=== PATIENT | male | born 1955 | race Caucasian/White ===

== ENCOUNTER → 2017-10-06 | Outpatient (CLI) | payer BC ==
[~2017-10-06] MED LIST: ACET500C41 PO; ALB18R INH; ALBUDR INH; ASCO250T86 PO; AZIT-1 PO; AZIT-17 PO; BIOT250012 PO; CHOL200074 PO; CYAN500T38 PO; DOCU-416 PO; FLU44R IH; FLUINH INH; FLUT16SP19 NS; FLUT1DIS28 IH; GLUC1TAB13 PO; HCTZ25 PO; IBUP600T22 PO; KRIL500C2 PO; LACT1CAP6 PO; LACT1CAP64 PO; LOS50 PO; LOSA-57 PO; LUTE20TA PO; LYCO10CA2 PO; MONT10TA PO; OMEP-218 PO; OXYC-854 PO; PNEI IJ; POTA-23 PO; POTASSIUM SUPPLEMENT; PRED20TA6 PO; TAMS0.4C70 PO; UBID200C21 PO; VITA-200 PO; [UNRECOGNIZED DRUG - REMARK]
--- NOTE | 2017-10-06 14:13 | RADIOLOGY IMAGING REPORT ---
[place] [facility] [place] Grady Guzman : 1955 MR: [id number] V: [id number] EXAM DATE: ORDERING PHYSICIAN: SUE HARRIS TECHNOLOGIST: Location: [facility] Patient: Grady Guzman : 1955 Visit/Account:[id number] Date of Sevice: 10/06/2017 CHEST W/O CONTRAST History: Thoracic aortic aneurysm without rupture, history of asthma TECHNIQUE: Contiguous axial images were performed through the chest to the level of the adrenal gla nds. No IV contrast was administered. Coronal and sagittal reformatting was also performed. Dose Lowe ring Technique One of the following dose optimization techniques was utilized in the performance of this exam: Autom ated exposure control; adjustment of the mA and/or kV according to the patient's size; or use of an i terative reconstruction technique. Specific details can be referenced in the facility's radiology C T exam operational policy. COMPARISON STUDIES: PA and lateral chest December 30, 2016. Lungs / Pleura: There is a 4 mm noncalcified nodule posterior aspect of the left lower lobe best se en on image 77 of series 3. There is a small amount linear stranding in the medial right middle lobe and left lower lobe which may represent scarring or a small amount of discoid atelectasis Mediastinum/nodes: Mediastinal structures are not ideally evaluated due to lack of intravenous contr ast. There are small pretracheal, precarinal AP window and right hilar lymph nodes. All measuring l ess than 1 cm. Heart and vessels: There are mild to moderate atherosclerotic calcifications involving the ascending thoracic aorta the aorta is not well evaluated due to lack of contrast. The distal ascending thorac ic aorta is dilated at 4.4 cm. The descending thoracic aorta does not appear dilated measures approx imately 2.5 cm in AP dimension. There are sternotomy sutures present and surgical clips are present anterior to the right ventricle and right atrium. There is a small calcification in the pericardium adjacent to the left ventricular apex Musculoskeletal / Body wall: There are sternotomy sutures present. Upper abdomen: Stomach is moderately distended with fluid and particulate material. IMPRESSION: Mild to moderate atherosclerotic calcifications are seen in the ascending thoracic aorta. The aorta is not well evaluated due to lack of contrast. The distal ascending thoracic aorta is dilated at 4.4 cm. The descending thoracic aorta does not appear dilated. Postsurgical changes from a sternotomy are noted. There is a 4 mm noncalcified nodule left lower lobe. For nodules less than 6 mm in a low risk patient (minimal or absent smoking history, no history of malignancy), no routine followup is recommended. I n a high risk patient (smoking or malignancy history), optional 12 month followup can be obtained. Small amount linear stranding in the right middle lobe left lower lobe which may represent scarring v ersus discoid atelectasis Multiple small mediastinal lymph nodes are present none of which appear pathologically enlarged. Report Dictated By: Francisca Winters MD at 10/06/2017 1:53 PM Report E-Signed By: Francisca Winters MD at 10/06/2017 2:08 PM WSN:[email or web address]
== END ==
LOC: CT 00:36
PROVIDERS: ATTEND Internal Medicine Cardiovascular Disease
DX: I70.0 Atherosclerosis of aorta (principal); R91.1 Solitary pulmonary nodule; R91.8 Other nonspecific abnormal finding of lung field
CPT/HCPCS: 71250

== ENCOUNTER → 2017-11-26 | Outpatient (REF) | payer BC ==
[2017-11-26 12:41] LABS: PLATELET COUNT, AUTOMATED 292 K/uL (150-450)
== END ==
PROVIDERS: ATTEND Nurse Practitioner Family
DX: M79.609 Pain in unspecified limb (principal)
CPT/HCPCS: 82040; 82247; 82310; 82374; 82435; 82565; 82947; 84075; 84132; 84155; 84295; 84450; 84460; 84520; 85025; 85651; 86140

== ENCOUNTER → 2017-12-05 | Outpatient (CLI) | payer BC ==
[~2017-12-05] MED LIST changes: +PRED-1 PO
[2017-12-05 11:25] LABS: INR 2.24
== END ==
LOC: LAB 10:47
PROVIDERS: ATTEND Orthopaedic Surgery Adult Reconstructive Orthopaedic Surgery
DX: Z51.81 Encounter for therapeutic drug level monitoring (principal); Z79.01 Long term (current) use of anticoagulants; M17.11 Unilateral primary osteoarthritis, right knee
CPT/HCPCS: 36415; 85610

== ENCOUNTER 2018-04-12 00:12 | Day surgery (SDC) | payer BC ==
[~2018-04-12] VITALS: Ht 177.8 cm; Wt 102.1 kg
[~2018-04-12 00:12] MED LIST changes: +ALBU2.5V36 INH; +FLUT250D IH; +VIT-9 PO
[2018-04-12] MEDS ORDERED: PROPOFOL EMUL(*) 10MG/ML 20 ML 40 ML ONE (06:58)
[2018-04-12 09:35] VITALS: BP 135/70
[2018-04-12] MEDS ORDERED: PROPOFOL EMUL(*) 10MG/ML 20 ML 20 ML ONE (10:59)
[2018-04-12] MEDS ORDERED: LIDOCAINE/SOD BICARB 8.4% SYR ID ONE (11:00)
[2018-04-12] MEDS ORDERED: NORMOSOL R SOLN(*) 1000 ML BAG 1,000 ML IV PRN (11:00)
[2018-04-12 11:14] VITALS: BP 92/51
--- NOTE | 2018-04-12 11:16 | Short(Outpt) Discharge Summary ---
Discharge Summary Reason for Hosp/Final Diag: (1) Colon cancer screening Status: Chronic Hospital Course & Plan: Colonoscopy with polypectomy x3 completed without problems. Departure Discharge to: Home, Self Care Discharge Instructions Home Meds Active Scripts Fluticasone Prop 50 Mcg Ns (FLONASE 50 MCG NS) 16 Gm Lucas.susp, 2 SPRAYS NS QDAY, #1 BOT 4 Refills Prov:KATRIN KRAUS MD 02/10/18 Ibuprofen (IBUPROFEN) 600 Mg Tablet, 1 TAB PO Q6H Y for PAIN, #60 TAB 0 Refills Prov:SUE SEARS MD 02/10/18 Tamsulosin Hcl (TAMSULOSIN HCL) 0.4 Mg Cap.er.24h, 1 CAP PO DAILY for to improve urine flow. , #90 CAP 1 Refill Prov:KATRIN KRAUS MD 01/20/18 Losartan/Hydrochlorothiazide (LOSARTAN-HCTZ 100-12.5 MG TAB) 1 Each Tablet, 1 EACH PO QDAY, #90 TAB 4 Refills Prov:KATRIN KRAUS MD 01/20/18 Albuterol Sulfate (VENTOLIN HFA) 18 Gm Inh, 1-2 PUFF INH TID, #3 INH 4 Refills Prov:KATRIN RKAUS MD 04/07/17 Reported Medications Vit A/Vit C/Vit E/Zinc/Copper (PRESERVISION AREDS TABLET) 1 Each Tablet, 1 EACH PO QDAY 04/03/18 Fluticasone Propionate (FLOVENT DISKUS) 250 Mcg Disk.w.dev, 250 MCG IH 04/03/18 Fluticasone/Salmeterol (ADVAIR 250-50 DISKUS) 1 Each Disk.w.dev, IH, DISK 01/10/18 Lactobacillus Acidophilus (ACIDOPHILUS) Unknown Strength Capsule, PO QDAY, CAPSULE 07/15/14 Ubidecarenone (CO Q-10) 200 Mg Capsule, 200 MG PO QDAY, CAPSULE 07/15/14 Biotin (BIOTIN) 2,500 Mcg Capsule, 5000 MCG PO QDAY, CAPSULE 07/15/14 Ascorbic Acid (VITAMIN C) 250 Mg Tablet, 250 MG PO QDAY 07/15/14 Cyanocobalamin (Vitamin B-12) (VITAMIN B-12) 500 Mcg Tablet, 500 MCG PO QDAY 07/15/14 Cholecalciferol (Vitamin D3) (VITAMIN D-3) 2,000 Unit Capsule, 2000 UNIT PO QDAY , CAPSULE 07/15/14 Glucosamine Hcl/Chondr Alexander A Na (OSTEO BI-FLEX CAPLET) 1 Each Tablet, 1 EACH PO QDAY 07/15/14 Diet: Regular Activity: As Tolerated Special Instructions: Your colonoscopy was completed without problems and your prep was acceptable. I removed 3 small polyps from your colon and they were sent to pathology. My office will call you in the next week or so to let you know what the polyps are and when your next colonoscopy should be (3, 5, or 10 years) depending on pathology results. SUE SEARS MD Apr 12, 2018 11:16
[2018-04-12 11:45] VITALS: BP 106/65
[2018-04-12 12:03] VITALS: BP 125/74
[2018-04-12 12:05] VITALS: BP 123/73
== END 2018-04-12 12:12 | disposition home or self-care (01) ==
LOC: OR 00:12
PROVIDERS: ATTEND Surgery
DX: Z12.11 Encounter for screening for malignant neoplasm of colon (principal); K63.5 Polyp of colon
CPT/HCPCS: 00811; 45385; 88305; J2704

== ENCOUNTER → 2018-09-08 | Outpatient (CLI) | payer BC ==
[~2018-09-08] MED LIST changes: +ADV230RPT INH
--- NOTE | 2018-09-08 13:17 | RADIOLOGY IMAGING REPORT ---
FACILITY: [facility] - [place] PATIENT NAME: Grady Guzman : 1955 MR: [id number] V: [id number] EXAM DATE: ORDERING PHYSICIAN: KATRIN KRAUS TECHNOLOGIST: Location: [facility] Patient: Grady Guzman : 1955 Visit/Account:[id number] Date of Sevice: 09/08/2018 Exam type: CHEST PA AND LAT History: cough, asthma Comparison: December 30, 2016. Findings: There are median sternotomy sutures present. The lungs are free of acute effusions, infiltrates or e helena. Cardiac silhouette is normal in size. The trachea is midline. There is mild flattening the h emidiaphragms IMPRESSION: 1. No acute cardiac pulmonary process is seen Report Dictated By: Francisca Winters MD at 09/08/2018 1:13 PM Report E-Signed By: Francisca Winters MD at 09/08/2018 1:14 PM WSN:[email or web address]
== END ==
LOC: RAD 10:17
PROVIDERS: ATTEND Internal Medicine
DX: J45.909 Unspecified asthma, uncomplicated (principal); R05 Cough
CPT/HCPCS: 71046

== ENCOUNTER 2018-10-23 20:11 | Emergency (ER) | payer BC ==
[~2018-10-23 20:11] MED LIST changes: -RIVA15TA PO
--- NOTE | 2018-10-23 20:21 | ER Report ---
History and Physical Time Seen By MD: 20:21 HPI/ROS CHIEF COMPLAINT: hypoxia, DVT HISTORY OF PRESENT ILLNESS: This is a 62 year old male. Sent from urgent care. Having shortness of breath and hypoxia. Leg swelling, with venous ultrasound showing extensive DVT from proximal femoral to popliteal. Has stage 3 chronic kidney disease and cannot have IV contrast based on nephrology recommendation. No fevers or chills. Mild cough, history of asthma. history of one episode of GI bleeding in the past, colonoscopy with polyps. One DVT in the past after injury, in the right lower extremity. This time with swelling in left leg, no know injury or cause. History of Aortic Artery problem with resulting surgery. Chest x-ray negative at urgent care. Otherwise normal labs. Allergies: Coded Allergies: No Known Drug Allergies (Verified , 10/23/18) Home Meds Active Scripts Rivaroxaban 15 Mg (XARELTO 15 MG) 15 Mg Tablet, 15 MG PO BID, #42 TAB 0 Refills Prov:FRANKIE DYE MD 10/23/18 Prednisone 10 Mg Tab (PREDNISONE 10 MG TAB) 10 Mg Tab.ds.pk, 10 MG PO BID, #10 TAB Prov:KATRIN KRAUS MD 10/18/18 Tamsulosin Hcl (TAMSULOSIN HCL) 0.4 Mg Cap.er.24h, 1 CAP PO DAILY for to improve urine flow. , #90 CAP 2 Refills Prov:KATRIN KRAUS MD 09/08/18 Fluticasone/Salmeterol (ADVAIR HFA 230-21 MCG INHALER) 1 Inh Inh, 2 INH INH BID, #1 INH 6 Refills Prov:AKTRIN KRAUS MD 09/08/18 Albuterol Sulfate (VENTOLIN HFA) 18 Gm Inh, 1-2 PUFF INH TID, #3 INH 1 Refill Prov:KATRIN KRAUS MD 05/16/18 Fluticasone Prop 50 Mcg Ns (FLONASE 50 MCG NS) 16 Gm Astor.susp, 2 SPRAYS NS QDAY, #1 BOT 4 Refills Prov:KATRIN KRAUS MD 02/10/18 Losartan/Hydrochlorothiazide (LOSARTAN-HCTZ 100-12.5 MG TAB) 1 Each Tablet, 1 EACH PO QDAY, #90 TAB 4 Refills Prov:KATRIN KRAUS MD 01/20/18 Reported Medications Vit A/Vit C/Vit E/Zinc/Copper (PRESERVISION AREDS TABLET) 1 Each Tablet, 1 EACH PO QDAY 04/03/18 Lactobacillus Acidophilus (ACIDOPHILUS) Unknown Strength Capsule, PO QDAY, CAPSULE 07/15/14 Ubidecarenone (CO Q-10) 200 Mg Capsule, 200 MG PO QDAY, CAPSULE 07/15/14 Biotin (BIOTIN) 2,500 Mcg Capsule, 5000 MCG PO QDAY, CAPSULE 07/15/14 Ascorbic Acid (VITAMIN C) 250 Mg Tablet, 250 MG PO QDAY 07/15/14 Cyanocobalamin (Vitamin B-12) (VITAMIN B-12) 500 Mcg Tablet, 500 MCG PO QDAY 07/15/14 Cholecalciferol (Vitamin D3) (VITAMIN D-3) 2,000 Unit Capsule, 2000 UNIT PO QDAY, CAPSULE 07/15/14 Glucosamine Hcl/Chondr Alexander A Na (OSTEO BI-FLEX CAPLET) 1 Each Tablet, 1 EACH PO QDAY 07/15/14 Discontinued Scripts Prednisone (PREDNISONE) 20 Mg Tablet, 1 TAB PO BID for 5 Days, #10 TAB 0 Refills Prov:CYNDI PRIETO DNP, STORE PRODUCT DEMONSTRATOR-BC 10/06/18 Prednisone (PREDNISONE) 20 Mg Tablet, 20 MG PO BID, #14 TAB Prov:KATRIN KRAUS MD 09/08/18 Reviewed Nurses Notes: Yes Hx Smoking: No Smoking Status: Never Smoker Hx Alcohol Use: No (2 PER MONTH ) Constitutional Vital Sign - Last 24 Hours 10/23/18 10/23/18 10/23/18 10/23/18 20:18 20:19 20:23 20:25 Temp 98.3 Pulse 81 94 Resp 18 B/P (MAP) 155/73 (100) 155/73 Pulse Ox 83 84 O2 Delivery Room Air O2 Flow Rate 2.0 10/23/18 10/23/18 10/23/18 10/23/18 20:26 20:30 20:31 20:36 Pulse 80 84 83 Resp 20 28 35 B/P (MAP) 128/79 (95) Pulse Ox 91 90 90 10/23/18 10/23/18 10/23/18 10/23/18 20:41 20:46 20:51 20:56 Pulse 84 85 84 88 Resp 32 19 22 17 Pulse Ox 90 89 90 91 10/23/18 10/23/18 10/23/18 10/23/18 21:00 21:01 21:06 21:11 Pulse 75 87 85 Resp 28 21 B/P (MAP) 135/73 (93) Pulse Ox 90 90 90 10/23/18 10/23/18 10/23/18 10/23/18 21:16 21:21 21:26 21:31 Pulse 86 84 87 81 Resp 34 21 24 25 Pulse Ox 89 93 89 90 10/23/18 10/23/18 10/23/18 10/23/18 21:46 22:00 22:01 22:06 Pulse 102 93 83 Resp 17 22 17 B/P (MAP) 134/71 (92) Pulse Ox 89 90 90 10/23/18 10/23/18 10/23/18 22:11 22:16 22:21 Pulse 89 93 90 Resp 25 23 15 Pulse Ox 90 90 Physical Exam General Appearance: The patient is alert. No acute distress. Eyes: Pupils are equal, round. No pallor, injection or icterus. ENT: Mucous membranes are moist. Neck: Supple and non tender. Respiratory: Lungs with mild expiratory wheezing. There are no retractions or accessory muscle use. Cardiovascular: Regular rate and rhythm. No murmurs, gallops or rubs. Normal capillary refill. Has mild edema in left lower extremity. Normal pulses. Neurological: Alert and oriented x3. Skin: Warm and dry. No rashes or lesions. Musculoskeletal: Some calf tenderness with palpation. Full range of motion. DIFFERENTIAL DIAGNOSIS: After history and physical exam, differential diagnosis was considered for DVT, and shortness of breath with assumed pulmonary embolism and hypoxia and shortness of breath, but unable to test further. Medical Decision Making Data Points Laboratory Hematology Test 10/23/18 21:30 Influenza Virus Type A (PCR) Negative (NEGATIVE) Influenza Virus Type B (PCR) Negative (NEGATIVE) Chemistry Test 10/23/18 21:30 Influenza Virus Type A (PCR) Negative (NEGATIVE) Influenza Virus Type B (PCR) Negative (NEGATIVE) ED Course/Re-evaluation ED Course Improved with oxygen. Reviewed EKG and chest x-ray results from urgent care. Reviewed Venous ultrasound report. Recommended starting Xarelto for anticoagulation. Reviewed risks and benefits and other options and discussed signs to watch for bleeding problems. Offered hospitalization or home treatment. Feel that home treatment is a safe option. Reviewed with our hospitalist as well . Home oxygen and Xarelto ordered. Decision to Disposition Date: Oct 23, 2018 Decision to Disposition Time: 22:05 Depart Departure Latest Vital Signs Vital Signs Date Time Temp Pulse Resp B/P (MAP) Pulse Ox O2 Delivery O2 Flow Rate FiO2 10/23/18 22:21 90 15 10/23/18 22:16 90 10/23/18 22:00 134/71 (92) 10/23/18 20:25 2.0 10/23/18 20:23 98.3 Room Air Impression: Primary Impression: Deep vein thrombophlebitis of left leg Additional Impressions: Pulmonary embolism Hypoxia Condition: Improved Disposition: HOME OR SELF-CARE Referrals: KATRIN KRAUS MD (PCP) New Scripts Rivaroxaban 15 Mg (XARELTO 15 MG) 15 Mg Tablet 15 MG PO BID, #42 TAB 0 Refills Prov: FRANKIE DYE MD 10/23/18 Departure Forms: Home Oxygen, Nebulizer RX Reason for Use/Diagnosis: DVT, PE, Hypoxia Start Date of the Order: Oct 23, 2018 Dosage or Concentration (if applicable) - LPM: 2 Route of Administration (if applicable): Nasal Cannula Frequency of Use: Continuous Duration Home O2 Required: 6 Duration Units: Weeks Room Air Oxygen Saturation: 84 ER Prescribing Physician's Name: Frankie yDe NPI Numbers for Local ER MDs: Marnie [id number] Patient Instructions: Deep Venous Thrombosis (ED), Pulmonary Embolism (DC) Additional Instructions: Take Xarelto 15mg twice a day for 21 days, then you will switch to 20mg once a day. Light to moderated activity until your symptoms are improving. Return to the ER for any severe nose bleeds that do not stop, bleeding from the GI tract, worsening of your breathing, severe sudden headache. Oxygen continuously until cleared by your regular doctor. Problem Qualifiers Additional Impressions: Pulmonary embolism Pulmonary embolism type: unspecified Chronicity: acute Acute cor pulmonale presence: without acute cor pulmonale Qualified Codes: I26.99 - Other pulmonary embolism without acute cor pulmonale FRANKIE DYE MD Oct 23, 2018 20:21
[2018-10-23 22:00] VITALS: BP 134/71
[2018-10-23] MEDS ORDERED: RIVAROXABAN 10 MG TAB PO ONE (22:00)
[2018-10-23] MEDS ORDERED: RIVA15TA PO (22:09)
[2018-10-25] MEDS ORDERED: TRAM-420 PO (14:14)
== END 2018-10-23 22:27 | disposition home or self-care (01) ==
LOC: ER 20:28
DX: I82.402 Acute embolism and thrombosis of unspecified deep veins of left lower extremity (principal); I26.99 Other pulmonary embolism without acute cor pulmonale; R09.02 Hypoxemia
CPT/HCPCS: 87502; 99283

== ENCOUNTER → 2018-10-23 | Outpatient (REF) | payer BC ==
[~2018-10-23] MED LIST changes: +PRED-420 PO; +RIVA15TA PO
[2018-10-23 17:35] LABS: PLATELET COUNT, AUTOMATED 180 K/uL (150-450)
== END ==
PROVIDERS: ATTEND Family Medicine
DX: M79.662 Pain in left lower leg (principal); R05 Cough
CPT/HCPCS: 82040; 82247; 82310; 82374; 82435; 82565; 82947; 84075; 84132; 84155; 84295; 84450; 84460; 84484; 84520; 85025; 85379; 86140

== ENCOUNTER → 2018-10-23 | Outpatient (CLI) | payer BC ==
--- NOTE | 2018-10-23 20:24 | RADIOLOGY IMAGING REPORT ---
FACILITY: [facility] PATIENT NAME: Grady Guzman : 1955 MR: [id number] V: [id number] EXAM DATE: ORDERING PHYSICIAN: VALENTE COKER TECHNOLOGIST: Location: [facility] [place] Patient: Grady Guzman : 1955 Visit/Account:[id number] Date of Sevice: 10/23/2018 EXAMINATION: Left Lower Extremity Venous Ultrasound HISTORY: Left leg pain and swelling. TECHNIQUE: Ultrasound evaluation of the left lower extremity veins was performed with color and spec tral Doppler and compression views. COMPARISON: None. FINDINGS: The left common femoral and profunda femoral veins are patent and compressible, without evidence of i ntraluminal thrombus. The visualized upper greater saphenous vein is patent. Occlusive thrombus begins in the proximal femoral vein along the upper thigh and extends inferiorly i nto the popliteal vein and into the visualized posterior tibial and peroneal veins in the calf. The a nterior tibial vein appears patent. IMPRESSION: Positive exam for DVT in the left leg. Thrombus begins in the proximal femoral vein in the upper thig h and extends inferiorly into the calf. Findings were discussed with VALENTE COKER at 10/23/2018 8:15 PM. Report Dictated By: Jude Mcpherson MD at 10/23/2018 8:07 PM Report E-Signed By: Jude Mcpherson MD at 10/23/2018 8:20 PM WSN:[email or web address]
== END ==
LOC: US 18:00
PROVIDERS: ATTEND Family Medicine
DX: I82.412 Acute embolism and thrombosis of left femoral vein (principal)

== ENCOUNTER → 2018-10-25 | Outpatient (CLI) | payer BC ==
[~2018-10-25] MED LIST changes: +LOSA100T75 PO; +RIVA15TA PO; +RIVA20TA PO; +TRAM-420 PO
--- NOTE | 2018-10-25 16:39 | RADIOLOGY IMAGING REPORT ---
[place] [facility] [place] NAME: Grady Guzman : 1955 MR: [id number] V: [id number] EXAM DATE: ORDERING PHYSICIAN: KATRIN KRAUS TECHNOLOGIST: [place] [facility] [place]ady Guz[place] : 1955 Visit/Account:[id number] Date of Sevice: 10/25/2018 Exam type: US VENOUS LOWER EXT LT History: DVT LLE worsening, patient on STIR also Comparison: October 15, 2018. Findings: There is extensive thrombus in the left superficial femoral vein through to the proximal left poplite al vein. The distal left popliteal vein was compressible and demonstrated flow. Thrombus was identi fied in the distal left posterior tibial vein and the left anterior tibial vein, peroneal vein. IMPRESSION: 1. Extensive DVT remains in the left superficial femoral vein into the proximal left popliteal vein. The distal left popliteal vein appeared patent without evidence of thrombus. Extensive thrombus id entified in the posterior tibial veins peroneal veins and anterior tibial veins. Report Dictated By: Francisca Winters MD at 10/25/2018 4:31 PM Report E-Signed By: Francisca Winters MD at 10/25/2018 4:34 PM WSN:[email or web address]
== END ==
LOC: RAD 14:39
PROVIDERS: ATTEND Internal Medicine
DX: I80.02 Phlebitis and thrombophlebitis of superficial vessels of left lower extremity (principal)

== ENCOUNTER → 2018-10-27 | Outpatient (CLI) | payer BC ==
--- NOTE | 2018-10-27 11:01 | RADIOLOGY IMAGING REPORT ---
[place] [facility] [place] NAME: Grady Guzman : 1955 MR: [id number] V: [id number] EXAM DATE: ORDERING PHYSICIAN: KATRIN KRAUS TECHNOLOGIST: Location: [facility] Patient: Grady Guzman : 1955 Visit/Account:[id number] Date of Sevice: 10/27/2018 Exam type: CHEST PA LAT History: Low O2, asthma, cough and shortness of breath since August 26 Comparison: September 08, 2018. Findings: There is mild flattening of hemidiaphragms consistent with hyperinflation. There is no evidence of a cute appearing infiltrates, pleural effusions or overt pulmonary edema. No evidence of a pneumothora x or pneumomediastinum. The cardiac silhouette is normal in size. There are sternotomy sutures pres ent. IMPRESSION: 1. Mild hyperinflation of the lung prieto although no evidence of acute pulmonary consolidation Report Dictated By: Francisca Winters MD at 10/27/2018 10:52 AM Report E-Signed By: Francisca Winters MD at 10/27/2018 10:54 AM WSN:[email or web address]
--- NOTE | 2018-10-27 15:46 | RADIOLOGY IMAGING REPORT ---
FACILITY: PATIENT NAME: Grady Guzman : 1955 MR: [id number] V: [id number] EXAM DATE: ORDERING PHYSICIAN: KATRIN KRAUS TECHNOLOGIST: Location: [facility] [place] Patient: Grady Guzman : 1955 Visit/Account:[id number] Date of Sevice: 10/27/2018 ADDENDUM #[address] 2. Large VQ mismatches within the high probability for pulmonary embol i category. Report Dictated By: Francisca Winters MD at 10/27/2018 3:43 PM Report E-Signed By: Francisca Winters MD at 10/27/2018 3:43 PM ORIGINAL REPORT NM VENTILATION & PERFUSION HISTORY: Hypoxia, extensive DVT in the left lower extremity TECHNIQUE: 32.9 mCi DTPA aerosol was administered by inhalation. Static images were obtained in the anterior, p osterior, right lateral, left lateral, RPO, LPO, FORRESTER, ASHLEY positions Two mCi Tc MAA was injected intravenously. Gamma camera images were obtained of the chest in various orientations. COMPARISON: Two view chest performed today FINDINGS: Lung perfusion radiotracer distribution: There are two large VQ mismatches within the right lower lo be Lung ventilation radiotracer distribution: No segmental ventilation defects identified Correlation to chest x-ray: No infiltrate, effusion or evidence of CHF. IMPRESSION: There are two large VQ mismatches within the right lower lobe. This corresponds to intermediate prob ability for acute pulmonary emboli (20-79%) according to the modified PIOPED criteria Results were called to KATRIN KRAUS at 10/27/2018 3:33 PM. Report Dictated By: Francisca Winters MD at 10/27/2018 3:24 PM Report E-Signed By: Francisca Winters MD at 10/27/2018 3:40 PM WSN:[email or web address]
== END ==
LOC: NUC 00:33
PROVIDERS: ATTEND Internal Medicine
DX: I26.99 Other pulmonary embolism without acute cor pulmonale (principal); R91.8 Other nonspecific abnormal finding of lung field
CPT/HCPCS: 71046; 78582; A9540; A9567

== ENCOUNTER → 2018-11-03 | Outpatient (CLI) | payer BC ==
[~2018-11-03] MED LIST changes: +ALLO100T70 PO
[2018-11-03 09:25] LABS: PLATELET COUNT, AUTOMATED 402 K/uL (150-450)
--- NOTE | 2018-11-03 11:27 | RADIOLOGY IMAGING REPORT ---
FACILITY: [facility] - [place] PATIENT NAME: Grady Guzman : 1955 MR: [id number] V: [id number] EXAM DATE: ORDERING PHYSICIAN: KATRIN KRAUS TECHNOLOGIST: [facility] Patient: Grady Guzman : 1955 Visit/Account:[id number] Date of Sevice: 11/03/2018 Exam type: TOE LEFT FOOT GREAT TOE History: gout Comparison: None. Findings: There is moderate narrowing of the lateral aspect of the left first MTP joint with subchondral cystic erosions and marginal osteophytes. There is a mild hallux valgus deformity involving the left great toe. There is mild to moderate soft tissue swelling also noted about the left first MTP joint. Lat eral deviation at the DIP joint of the left second toe also noted IMPRESSION: 1. Moderate narrowing the lateral aspect of the left first MTP joint with marginal osteophytes which is more suggestive of degenerative arthritis. There is mild to moderate soft tissue swelling about the left first MTP joint which can be seen with gout Report Dictated By: Francisca Winters MD at 11/03/2018 11:21 AM Report E-Signed By: Francisca Winters MD at 11/03/2018 11:23 AM WSN:[email or web address]
== END ==
LOC: LAB 08:36
PROVIDERS: ATTEND Internal Medicine
DX: I80.202 Phlebitis and thrombophlebitis of unspecified deep vessels of left lower extremity (principal); I26.99 Other pulmonary embolism without acute cor pulmonale; M10.9 Gout, unspecified; M19.072 Primary osteoarthritis, left ankle and foot
CPT/HCPCS: 36415; 81240; 81241; 82040; 82247; 82310; 82374; 82435; 82565; 82947; 84075; 84132; 84155; 84295; 84450; 84460; 84520; 84550; 85025; 85300; 85303; 85306; 85597; 85610; 85613; 85730; 86140; 86147

== ENCOUNTER → 2018-12-12 | Outpatient (CLI) | payer BC ==
[~2018-12-12] MED LIST changes: +ALLO-2 PO; +COLC0.6C3 PO; +ROSU10TA PO
[2018-12-12 11:01] LABS: PLATELET COUNT, AUTOMATED 244 K/uL (150-450)
== END ==
LOC: LAB 10:28
PROVIDERS: ATTEND Internal Medicine
DX: M10.9 Gout, unspecified (principal); I26.99 Other pulmonary embolism without acute cor pulmonale; I80.202 Phlebitis and thrombophlebitis of unspecified deep vessels of left lower extremity; I12.9 Hypertensive chronic kidney disease with stage 1 through stage 4 chronic kidney disease, or unspecified chronic kidney disease; N18.9 Chronic kidney disease, unspecified; E78.5 Hyperlipidemia, unspecified; M19.90 Unspecified osteoarthritis, unspecified site
CPT/HCPCS: 36415; 82040; 82247; 82310; 82374; 82435; 82550; 82565; 82947; 83036; 84075; 84132; 84155; 84295; 84450; 84460; 84520; 84550; 85025; 85651; 86038; 86140; 86200; 86430

== ENCOUNTER → 2019-01-03 | Outpatient (CLI) | payer BC ==
[~2019-01-03] MED LIST changes: +PRAV20TA65 PO
== END ==
LOC: LAB 10:28
PROVIDERS: ATTEND Internal Medicine
DX: M10.9 Gout, unspecified (principal); E78.5 Hyperlipidemia, unspecified; I80.202 Phlebitis and thrombophlebitis of unspecified deep vessels of left lower extremity; I26.99 Other pulmonary embolism without acute cor pulmonale; N18.9 Chronic kidney disease, unspecified; I10 Essential (primary) hypertension
CPT/HCPCS: 36415; 82040; 82247; 82310; 82374; 82435; 82565; 82947; 84075; 84132; 84155; 84295; 84450; 84460; 84520

== ENCOUNTER → 2019-01-03 | Outpatient (REF) | payer BC | LOC: ZZSENDIN 10:57 | PROVIDERS: ATTEND Internal Medicine Nephrology | DX: M1A.0790 Idiopathic chronic gout, unspecified ankle and foot, without tophus (tophi) (principal); N18.3 Chronic kidney disease, stage 3 (moderate); I12.9 Hypertensive chronic kidney disease with stage 1 through stage 4 chronic kidney disease, or unspecified chronic kidney disease | CPT/HCPCS: 82306; 83970; 84550 ==

== ENCOUNTER → 2019-01-04 | Outpatient (CLI) | payer BC | LOC: RESP 01:27 | PROVIDERS: ATTEND Internal Medicine | DX: G47.33 Obstructive sleep apnea (adult) (pediatric) (principal) ==

== ENCOUNTER → 2019-03-02 | Outpatient (CLI) | payer BC ==
[~2019-03-02] MED LIST changes: -CYAN500T38 PO; +CYAN500T39 PO; +NYST15CR32 TP
== END ==
LOC: RESP 21:01
PROVIDERS: ATTEND Internal Medicine
DX: G47.33 Obstructive sleep apnea (adult) (pediatric) (principal); G47.36 Sleep related hypoventilation in conditions classified elsewhere